=== PATIENT | female | born 1975 | race Hispanic/Latino ===

== ENCOUNTER 2021-03-09 19:47 | Emergency (ER) | payer MEDICARE ==
[~2021-03-09] VITALS: Ht 152.4 cm; Wt 88.9 kg
[2021-03-09 19:48] VITALS: BP 126/75
[2021-03-09] MEDS ORDERED: ALBUHFA IH (21:44)
[2021-03-09] MEDS ORDERED: FLUT1DIS4 IH (21:44)
[2021-03-09] MEDS ORDERED: D-ME1POW16 PO (21:44)
== END 2021-03-09 21:57 | disposition home or self-care (01) ==
LOC: EDH 19:47
DX: U07.1 COVID-19 (principal); J06.9 Acute upper respiratory infection, unspecified; I10 Essential (primary) hypertension; E11.9 Type 2 diabetes mellitus without complications; E78.00 Pure hypercholesterolemia, unspecified; Z88.5 Allergy status to narcotic agent; Z79.899 Other long term (current) drug therapy
CPT/HCPCS: 71045; 87635; 87804 ×2; 99284; C9803